=== PATIENT | female | born 1955 | race American Indian/Alaskan Native ===

== ENCOUNTER 2018-07-21 07:33 | Emergency (ER) | payer BC ==
[2018-07-21 07:41] VITALS: BP 132/69
[2018-07-21] MEDS ORDERED: TORADOL ONE (09:53)
[2018-07-21] MEDS ORDERED: DECADRON ONE (09:53)
[2018-07-21] MEDS ORDERED: TORADOL IM ONE (09:56)
[2018-07-21] MEDS ORDERED: DECADRON IM ONE (09:56)
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
== END 2018-07-21 10:17 | disposition home or self-care (01) ==
LOC: ED 07:33
DX: G89.29 Other chronic pain (principal); M54.42 Lumbago with sciatica, left side; M54.41 Lumbago with sciatica, right side; K21.9 Gastro-esophageal reflux disease without esophagitis; Z90.710 Acquired absence of both cervix and uterus; Z90.89 Acquired absence of other organs
CPT/HCPCS: 96372; 99282; J1100; J1885

== ENCOUNTER 2021-04-23 09:10 | Emergency (ER) | payer BC, MEDICARE ==
[2021-04-23 09:35] VITALS: BP 132/65
[2021-04-23] MEDS ORDERED: TETANUS,DIPH,PERTUSS(ACELL) VACCINE 0.5 ML SYRINGE IM ONE ×2 (10:08→14:00)
--- NOTE | 2021-04-23 10:47 | XRay Report ---
LUMBOSACRAL SPINE 3 VIEWS INDICATION: right hand injury/PAIN. COMPARISON: None. IMPRESSION: There is minimal dextrocurvature on the frontal view. There is 6 mm anterolisthesis of L 3 with respect to L4. The remaining lumbar vertebra are normal in alignment. Mild to moderate discoge el DJD and facet arthropathy are identified at L3-4. No acute osseous or soft tissue abnormality. RIGHT HAND 3 VIEWS INDICATION: right hand injury/PAIN. COMPARISON: None. IMPRESSION: No acute osseous or soft tissue abnormality. No significant DJD. Signer Name: Dony Guerin Jr, MD Signed: 04/23/2021 10:42 AM Workstation Name: [id number]
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
[2021-04-23] MEDS ORDERED: IBUPROFEN 800 MG TAB PO ONE (12:13)
[2021-04-23] MEDS ORDERED: IBUPROFEN 800 MG TAB ONE (12:14)
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
== END 2021-04-23 14:27 | disposition home or self-care (01) ==
LOC: ED 09:10
DX: S61.411A Laceration without foreign body of right hand, initial encounter (principal); S39.012A Strain of muscle, fascia and tendon of lower back, initial encounter; R40.4 Transient alteration of awareness; K21.9 Gastro-esophageal reflux disease without esophagitis; Z79.899 Other long term (current) drug therapy; Z98.890 Other specified postprocedural states; Y04.2XXA Assault by strike against or bumped into by another person, initial encounter; Y93.89 Activity, other specified; Y92.89 Other specified places as the place of occurrence of the external cause; Y99.8 Other external cause status
CPT/HCPCS: 70450; 72100; 72125; 90471; 90715